=== PATIENT | male | born 1990 | race Caucasian/White ===

== ENCOUNTER → 2016-10-20 | Outpatient (CLI) | payer OTHER ==
[~2016-10-20] MED LIST: ACET-1311 PO; DXY100 PO; METO25TA3 PO; TACR1CAP PO
[2016-10-20 09:33] LABS: BASO % 0.5 %; BASO ABS # 0.04 K/uL (0-0.2); COMPLETE YES; EOS % 3.2 %; HEMATOCRIT 38.6 % (42-52); IG% 0.1 %; LYMPH % 30.8 %; LYMPH ABS # 2.31 K/uL (1.2-3.4); MEAN CELL VOLUME 87.5 fL (80-100); MEAN CORPUSCULAR HEMOGLOBIN 29.3 pg (25-34); MEAN CORPUSCULAR HGB CONC 33.4 g/dl (32-36); MEAN PLATELET VOLUME 11.2 fL (7.4-10.4); MONO % 10.9 %; NEUT % 54.5 %; PLATELET COUNT 248 K/uL (130-400); RED BLOOD COUNT 4.41 M/uL (4.7-6.1)
[2016-10-20 09:52] LABS: BLOOD UREA NITROGEN 25 mg/dl (7-18); BUN/CREATININE RATIO 26.3 (10-20); CALCIUM 9.3 mg/dl (8.5-10.1); CARBON DIOXIDE 27 mmol/L (21-32); CHLORIDE 104 mmol/L (98-107); CREATININE 0.93 mg/dl (0.60-1.40); GLUCOSE 88 mg/dl (70-99); POTASSIUM 4.4 mmol/L (3.5-5.1); SODIUM 139 mmol/L (136-145); URIC ACID 5.8 mg/dl (2.6-7.2)
[2016-10-20 09:53] LABS: PHOSPHORUS 3.7 mg/dl (2.5-4.9)
[2016-10-22 10:30] LABS: FK506 TACROLIMUS HIGHLY SENS 2.1 MCG/L (5-20)
== END | disposition home or self-care (01) ==
LOC: C.LAB1850 07:31
PROVIDERS: ATTEND Specialist
DX: Z94.0 Kidney transplant status (principal)

== ENCOUNTER 2017-04-12 15:32 | Inpatient (IN) | payer OTHER ==
[~2017-04-12] VITALS: Ht 177.8 cm; Wt 67.0 kg
[2017-04-12] MEDS ORDERED: PIPERACILLIN/TAZOBACTAM 4.5 GM/100ML D5W IV STA (16:58)
[2017-04-12] MEDS ORDERED: SODIUM CHLORIDE 0.9% 1000ML 1,000 ML IV STA (16:58)
[2017-04-12] MEDS ORDERED: SODIUM CHLORIDE 0.9% 1000ML 500 ML IV ONE (16:58)
[2017-04-12] MEDS ORDERED: ACETAMINOPHEN 500 MG TAB PO STA (16:58)
[2017-04-12] MEDS ORDERED: METO25TA3 PO (17:12)
[2017-04-12] MEDS ORDERED: ACET-1311 PO (17:12)
[2017-04-12] MEDS ORDERED: TACR1CAP PO (17:12)
[2017-04-12 17:18] LABS: URINE APPEARANCE CLEAR (CLEAR); URINE BILIRUBIN NEG (NEG); URINE COLOR YELLOW; URINE EPITHELIAL CELL AUTO 20-30 /lpf (0-5); URINE NITRITE NEG (NEG); URINE SPECIFIC GRAVITY 1.007 (1.000-1.030); UROBILINOGEN NEG (NEG); ZZUR CULT IF INDIC CLEAN CATCH NO
[2017-04-12 17:21] LABS: MANUAL MICROSCOPIC REQUIRED? NO; REVIEW REQ? NO
[2017-04-12 17:40] LABS: BASO % 0.2 %; BASO ABS # 0.02 K/uL (0-0.2); COMPLETE YES; EOS % 0.2 %; IG% 0.4 %; LYMPH ABS # 1.17 K/uL (1.2-3.4); MEAN CELL VOLUME 84.3 fL (80-100); MEAN CORPUSCULAR HEMOGLOBIN 29.5 pg (25-34); MEAN PLATELET VOLUME 10.2 fL (7.4-10.4); NEUT % 76.2 %; PLATELET COUNT 212 K/uL (130-400); RED BLOOD COUNT 4.51 M/uL (4.7-6.1); WHITE BLOOD COUNT 13.05 K/uL (4.8-10.8)
--- NOTE | 2017-04-12 17:46 | DIAGNOSTIC IMAGING REPORT ---
CHEST ONE VIEW PORTABLE CLINICAL HISTORY: Sepsis fever COMPARISON STUDY: No previous studies for comparison. FINDINGS: The bones soft tissues and hemidiaphragms are normal. The cardiomediastinal silhouette is normal. The lungs are clear. The pulmonary vasculature is normal. IMPRESSION: Negative chest. The above report was generated using voice recognition software. It may contain grammatical, syntax or spelling errors. Electronically signed by: Rancho Fishman M.D. 04/12/2017 5:45 PM Dictated Date/Time: 04/12/2017 5:45 PM
[2017-04-12 17:58] LABS: INR 1.1 (0.9-1.1); PARTIAL THROMBOPLASTIN RATIO 1.3; PROTHROMBIN TIME (PATIENT) 11.4 SECONDS (9.0-12.0)
[2017-04-12 18:02] LABS: BUN/CREATININE RATIO 9.6 (10-20); CALCIUM 9.2 mg/dl (8.5-10.1); CREATININE 0.97 mg/dl (0.60-1.40); POTASSIUM 3.9 mmol/L (3.5-5.1)
[2017-04-12 18:05] LABS: ALB/GLOB RATIO 0.9 (0.9-2)
[2017-04-12 18:51] LABS: LYME DISEASE AB IGG NEG (NEG); LYME DISEASE AB IGM NEG (NEG)
--- NOTE | 2017-04-12 19:58 | History and Physical ---
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 He has no specific symptoms otherwise the point a particular illness. He does have some minimal pelvic tenderness over his transplant in the right renal pelvis. He has some generalized fatigue. Family History Noncontributory Social History Smoking Status: Never Smoker Smokeless Tobacco Use: No Alcohol Use: none Drug Use: none Occupational Status: [employer] student Immunizations History of Influenza Vaccine: Unknown History of Tetanus Vaccine?: Unknown History of Pneumococcal: Unknown History of Hepatitis B Vaccine: Unknown Multi-Drug Resistant Organisms History of MDRO: No Home Medications Scheduled Metoprolol Succ (Toprol Xl) (Toprol-Xl), 12.5 MG PO DAILY Tacrolimus (Prograf), 3 CAP PO BID Miscellaneous Medications Acetaminophen (Tylenol), 325 MG PO Review of Systems The patient denies chest pain, palpitations, shortness of breath, cough, lower extremity swelling, vision change, hearing change, sore throat, chills, sweats, weight change, fatigue, nausea, vomiting, diarrhea or constipation, abdominal pain, blood in urine or stool, dysuria, urinary frequency or urgency, lightheadedness, dizziness, headache, memory loss, rash, abnormal bruising or bleeding, imbalance, focal or generalized weakness, numbness or tingling in arms or legs, back or neck pain, night sweats, or allergy symptoms. The review of systems is otherwise negative other than for that already noted above, and at least 10 systems have been reviewed. Physical Exam Vital Signs Date Time Temp Pulse Resp B/P (MAP) Pulse Ox O2 Delivery O2 Flow Rate FiO2 04/12/17 18:21 37.5 83 17 124/80 96 Room Air 04/12/17 17:39 98 Room Air 04/12/17 17:10 92 04/12/17 17:05 38.0 102 20 149/78 97 Room Air 04/12/17 15:40 37.6 105 22 153/83 97 Room Air The patient is awake, well-developed and adequately nourished, alert and oriented 3, normocephalic and atraumatic, lying in bed and in no acute distress. HEENT--PERRL, EOMI, mucous membranes and oropharynx dry. Neck--supple, no JVD or bruits, thyroid normal, trachea midline, no adenopathy. Heart--normal S1 and S2, no extra beats, no murmurs, rubs or gallops. Lungs--clear bilaterally with good air movement, no respiratory distress, no accessory muscle use. Abdomen--normal bowel sounds and soft, right renal pelvis minimally tender transplant, nondistended, no hernias or masses, no organomegaly. Extremities--no cyanosis, clubbing or edema. There are good distal pulses b/l. Dermatologic--normal skin turgor, normal color, warm and dry, no abnormal lymph nodes, no rash. Neurologic--cranial nerves II through XII grossly intact, motor and sensory examination normal. Rheumatologic--normal range of motion, nontender, muscles and joints. Psychiatric--normal affect. Diagnostics Laboratory Results Results Past 24 Hours Test 04/12/17 17:00 04/12/17 17:20 04/12/17 17:32 04/12/17 19:44 Range/Units Urine Color YELLOW Urine Appearance CLEAR CLEAR Urine pH 8.0 4.5-7.5 Urine Specific [place] 1.007 1.000-1.030 Urine Protein NEG NEG Urine Glucose (UA) NEG NEG Urine Ketones NEG NEG Urine Occult Blood 2+ NEG Urine Nitrite NEG NEG Urine Bilirubin NEG NEG Urine Urobilinogen NEG NEG Urine Leukocyte Esterase LARGE NEG Urine WBC (Auto) 5-10 0-5 /hpf Urine RBC (Auto) 0-4 0-4 /hpf Urine Hyaline Casts (Auto) 0 0-5 /lpf Urine Epithelial Cells (Auto) 20-30 0-5 /lpf Urine Bacteria (Auto) NEG NEG White Blood Count 13.05 4.8-10.8 K/uL Red Blood Count 4.51 4.7-6.1 M/uL Hemoglobin 13.3 14.0-18.0 g/dL Hematocrit 38.0 42-52 % Mean Corpuscular Volume 84.3 80-100 fL Mean Corpuscular Hemoglobin 29.5 25-34 pg Mean Corpuscular Hemoglobin Concent 35.0 32-36 g/dl Platelet Count 212 130-400 K/uL Mean Platelet Volume 10.2 7.4-10.4 fL Neutrophils (%) (Auto) 76.2 % Lymphocytes (%) (Auto) 9.0 % Monocytes (%) (Auto) 14.0 % Eosinophils (%) (Auto) 0.2 % Basophils (%) (Auto) 0.2 % Neutrophils # (Auto) 9.96 1.4-6.5 K/uL Lymphocytes # (Auto) 1.17 1.2-3.4 K/uL Monocytes # (Auto) 1.83 0.11-0.59 K/uL Eosinophils # (Auto) 0.02 0-0.5 K/uL Basophils # (Auto) 0.02 0-0.2 K/uL RDW Standard Deviation 38.8 36.4-46.3 fL RDW Coefficient of Variation 12.8 11.5-14.5 % Immature Granulocyte % (Auto) 0.4 % Immature Granulocyte # (Auto) 0.05 0.00-0.02 K/uL Prothrombin Time 11.4 9.0-12.0 SECONDS Prothromb Time International Ratio 1.1 0.9-1.1 Activated Partial Thromboplast Time 34.8 21.0-31.0 SECONDS Partial Thromboplastin Ratio 1.3 Sodium Level 134 136-145 mmol/L Potassium Level 3.9 3.5-5.1 mmol/L Chloride Level 100 98-107 mmol/L Carbon Dioxide Level 28 21-32 mmol/L Anion Gap 6.0 3-11 mmol/L Blood Urea Nitrogen 9 7-18 mg/dl Creatinine 0.97 0.60-1.40 mg/dl Est Creatinine Clear Calc Drug Dose 118.3 ml/min Estimated GFR () 126.1 Estimated GFR (Non- 108.8 BUN/Creatinine Ratio 9.6 10-20 Random Glucose 108 70-99 mg/dl Calcium Level 9.2 8.5-10.1 mg/dl Total Bilirubin 1.4 0.2-1 mg/dl Aspartate Amino Transf (AST/SGOT) 14 15-37 U/L Alanine Aminotransferase (ALT/SGPT) 18 12-78 U/L Alkaline Phosphatase 73 45-117 U/L Total Protein 7.7 6.4-8.2 gm/dl Albumin 3.7 3.4-5.0 gm/dl Globulin 4.0 2.5-4.0 gm/dl Albumin/Globulin Ratio 0.9 0.9-2 Lyme Disease IgG Antibody NEG NEG Lyme Disease IgM Antibody NEG NEG Bedside Lactic Acid Venous 0.57 0.90-1.70 mmol/L Microbiology Results 04/12/17 Blood Culture, Received Pending 04/12/17 Blood Culture, Received Pending Diagnostic Radiology Patient Name: JAYLON VERA Unit Number: [id number] Dictated: 04/12/171744 Transcribed: 04/12/171744 MS Printed Date/Time: [~ rep prt dt]/[~ rep prt tm] [~ rep ct labl] - [~ rep ct ivnm] [place] [address] Dictated: 04/12/171744 Transcribed: 04/12/171744 MS Printed Date/Time: [~ rep prt dt]/[~ rep prt tm] [~ rep ct labl] - [~ rep ct ivnm] [~ rep ct add3]] CHEST ONE VIEW PORTABLE CLINICAL HISTORY: Sepsis fever COMPARISON STUDY: No previous studies for comparison. FINDINGS: The bones soft tissues and hemidiaphragms are normal. The cardiomediastinal silhouette is normal. The lungs are clear. The pulmonary vasculature is normal. IMPRESSION: Negative chest. The above report was generated using voice recognition software. It may contain grammatical, syntax or spelling errors. Electronically signed by: Rancho Fishman M.D. 04/12/2017 5:45 PM Dictated Date/Time: 04/12/2017 5:45 PM The status of this report is Signed. Draft = Not yet reviewed or approved by Radiologist. Signed = Reviewed and approved by Radiologist. <AttendingPhy></AttendingPhy> <FamilyPhy>No Doctor, Assigned</FamilyPhy> < PrimaryPhy>No Doctor, Assigned</PrimaryPhy> <UnitNumber>[id number]</UnitNumber> <VisitNumber>[id number]</VisitNumber> <PatientName>JAYLON VERA</PatientName> <DateOfBirth>1990</DateOfBirth> <Location>[facility]</Location> <ServiceDate></ServiceDate> <MNE>ESINDI</MNE> <OrderingPhy>Danny Galvin M.D.</ OrderingPhy> <OrderingPhyMNE>f rep ord dr torres</OrderingPhyMNE> <DictatingPhyMNE> f rep dict dr torres</DictatingPhyMNE> <CCListMNE>f rep ct mne</CCListMNE> < AdmittingPhyMNE>f pt admit dr torres</AdmittingPhyMNE> <AttendingPhyMNE>f pt attend dr torres</AttendingPhyMNE> <ConsultingPhyMNE>f pt consult dr torres</ConsultingPhyMNE> <FamilyPhyMNE>f pt fam dr torres</FamilyPhyMNE> <OtherPhyMNE>f pt other dr torres</OtherPhyMNE> < PrimaryPhyMNE>f pt prim care dr torres</PrimaryPhyMNE> <ReferringPhyMNE>f pt referring dr torres</ReferringPhyMNE> Impression Assessment and Plan Febrile illness/generalized achiness/immunocompromised due to medications/ status post renal transplant in right pelvis--emergency department physician has spoken with transplant physician at [place], and their recommendation is for the patient to be observed overnight in the hospital. Order ULTRASOUND of right renal pelvis for transplant function. Regular diet. Order a tacrolimus level. Order CMV level Empiric treatment daptomycin IV and Zosyn IV. Follow urine cultures and blood cultures. Continue current dose of Prograf. Continue metoprolol. Level of Care Med/Surg Advanced Directives Existing Advance Directive: No Existing Living Will: No Existing Power of Cleaning Machine Operator: No Resuscitation Status FULL RESUSCITATION VTE Prophylaxis VTE Risk Assessment Done? Y/N: Yes Risk Level: Low Given or contraindicated: SCD's Social Service Consult None Apply
[2017-04-12 20:09] VITALS: BP 124/80; PULSE 83; TEMP 37.5; O2SAT 100; Ht 177.8 cm; Wt 67.0 kg
--- NOTE | 2017-04-12 20:56 | DIAGNOSTIC IMAGING REPORT ---
RENAL TRANSPLANT W/OW DUPLE CLINICAL HISTORY: renal transplant in right pelvis, immunocompromised, fever TECHNIQUE: Ultrasound COMPARISON STUDY: None FINDINGS: The right cahto kidney measures 10.5 cm. It demonstrates hydronephrosis. The left cahto kidney has been surgically removed. Transplant kidney measures 11.6 cm maximum dimension. There is mild fullness of the renal pelvis although oc hydronephrosis is not seen. This resolved post voiding. Velocity characteristics are unremarkable. Impedance characteristics are unremarkable. IMPRESSION: 1. Surgically absent left kidney. 2.. Negative right kidney demonstrates hydronephrosis with a maximum dimension 10.5 cm. 3. Right renal transplant kidney measures 11.6 cm. It demonstrates mild fullness of the renal collecting system with bladder distention, although this resolves post voiding. 4. Normal renal arterial blood flow characteristics to the transplant kidney. No evidence for a significant stenotic process. The above report was generated using voice recognition software. It may contain grammatical, syntax or spelling errors. Electronically signed by: Rancho Fishman M.D. 04/12/2017 8:55 PM Dictated Date/Time: 04/12/2017 8:51 PM
[2017-04-12 21:06] VITALS: BP 143/82; PULSE 78; TEMP 37.3; O2SAT 100
[2017-04-12] MEDS: TACROLIMUS 1 MG CAP PO SCH (21:34)
--- NOTE | 2017-04-12 21:35 | EMERGENCY ROOM VISIT NOTE ---
History Report prepared by Nohelia: Lian Santos Under the Supervision of: Dr. Danny Galvin M.D. First contact with patient: 16:55 Chief Complaint: FLU LIKE SX Stated Complaint: 102 FEVER,WILKS,CHILLS History of Present Illness The patient is a 26 year old male who presents to the Emergency Room with complaints of an episode of flu like symptoms starting yesterday. The patient states that he received a kidney transplant in 2005. The patient states that yesterday he woke up feeling weak, nauseous, with chills, and a headache. The patient notes he is no longer nauseous. He states that he has been taking Tylenol every 4-6 hours and that has helped with the fever. He states that his temperature was 102 degrees Fahrenheit. He notes that yesterday he felt achy. He states that he feels better than yesterday and notes he has been drinking more fluids. He states that his urine has been clear. He currently rates his pain as a 6/10 in severity. The patient denies infection in his urine ever, any urinary symptoms, cough, congestion, being around someone sick, rashes, and tick bites. Source of History: patient Onset: yesterday Position: other (global) Symptom Intensity: 6/10 Quality: ache Timing: other (episode) Associated Symptoms: + fevers, + chills, + headache, + weakness, No cough, No nausea, No urinary symptoms, No rash Note: The patient denies infection in his urine ever, congestion, being around someone sick, and tick bites. Review of Systems See HPI for pertinent positives & negatives. A total of 10 systems reviewed and were otherwise negative. Past Medical & Surgical Medical Problems: (1) Febrile illness, acute Surgical Problems: (1) Kidney transplant recipient Family History No pertinent family history Social History Smoking Status: Never Smoker Marital Status: in relationship Housing Status: lives with significant other Occupation Status: employed Current/Historical Medications Scheduled Metoprolol Succ (Toprol Xl) (Toprol-Xl), 12.5 MG PO DAILY Tacrolimus (Prograf), 3 CAP PO BID Miscellaneous Medications Acetaminophen (Tylenol), 325 MG PO Allergies Coded Allergies: No Known Allergies (Unverified , 04/12/17) Physical Exam Vital Signs Date Time Temp Pulse Resp B/P (MAP) Pulse Ox O2 Delivery O2 Flow Rate FiO2 04/12/17 18:21 37.5 83 17 124/80 96 Room Air 04/12/17 17:39 98 Room Air 04/12/17 17:10 92 04/12/17 17:05 38.0 102 20 149/78 97 Room Air 04/12/17 15:40 37.6 105 22 153/83 97 Room Air Physical Exam GENERAL: Patient is in no acute distress. HEENT: No acute trauma, normocephalic atraumatic, mucous membranes moist, no nasal congestion, no scleral icterus. NECK: No stridor, no adenopathy, no meningismus, trachea is midline. LUNGS: Clear to auscultation bilaterally, no wheeze, no rhonchi, breath sounds equal. HEART: Without murmurs gallops or rubs, regular rate and rhythm. ABDOMEN: Soft, mildly tender in RLQ over the renal transplant, bowel sounds positive, no hernias, no peritonitis. EXTREMITIES: No cyanosis or edema, full range of motion of all the joints without pain or difficulty, no signs for acute trauma. NEUROLOGIC: Oriented x 3, no acute motor or sensory deficits, no focal weakness. SKIN: No rash, no jaundice, no diaphoresis. Medical Decision & Procedures ER Provider Diagnostic Interpretation: Radiology results as stated below per my review and radiologist interpretation: CHEST ONE VIEW PORTABLE CLINICAL HISTORY: Sepsis fever COMPARISON STUDY: No previous studies for comparison. FINDINGS: The bones soft tissues and hemidiaphragms are normal. The cardiomediastinal silhouette is normal. The lungs are clear. The pulmonary vasculature is normal. IMPRESSION: Negative chest. The above report was generated using voice recognition software. It may contain grammatical, syntax or spelling errors. Electronically signed by: Rancho Fishman M.D. 04/12/2017 5:45 PM Dictated Date/Time: 04/12/2017 5:45 PM Laboratory Results 04/12/17 17:20 Red Blood Count 4.51, Mean Corpuscular Volume 84.3, Mean Corpuscular Hemoglobin 29.5, Mean Corpuscular Hemoglobin Concent 35.0, Mean Platelet Volume 10.2, Neutrophils (%) (Auto) 76.2, Lymphocytes (%) (Auto) 9.0, Monocytes (%) (Auto) 14.0, Eosinophils (%) (Auto) 0.2, Basophils (%) (Auto) 0.2, Neutrophils # (Auto ) 9.96, Lymphocytes # (Auto) 1.17, Monocytes # (Auto) 1.83, Eosinophils # (Auto ) 0.02, Basophils # (Auto) 0.02 04/12/17 17:20 Test 04/12/17 17:00 04/12/17 17:20 04/12/17 17:32 Urine Color YELLOW Urine Appearance CLEAR (CLEAR) Urine pH 8.0 (4.5-7.5) Urine Specific [place] 1.007 (1.000-1.030) Urine Protein NEG (NEG) Urine Glucose (UA) NEG (NEG) Urine Ketones NEG (NEG) Urine Occult Blood 2+ (NEG) Urine Nitrite NEG (NEG) Urine Bilirubin NEG (NEG) Urine Urobilinogen NEG (NEG) Urine Leukocyte Esterase LARGE (NEG) Urine WBC (Auto) 5-10 /hpf (0-5) Urine RBC (Auto) 0-4 /hpf (0-4) Urine Hyaline Casts (Auto) 0 /lpf (0-5) Urine Epithelial Cells (Auto) 20-30 /lpf (0-5) Urine Bacteria (Auto) NEG (NEG) White Blood Count 13.05 K/uL (4.8-10.8) Red Blood Count 4.51 M/uL (4.7-6.1) Hemoglobin 13.3 g/dL (14.0-18.0) Hematocrit 38.0 % (42-52) Mean Corpuscular Volume 84.3 fL (80-100) Mean Corpuscular Hemoglobin 29.5 pg (25-34) Mean Corpuscular Hemoglobin Concent 35.0 g/dl (32-36) Platelet Count 212 K/uL (130-400) Mean Platelet Volume 10.2 fL (7.4-10.4) Neutrophils (%) (Auto) 76.2 % Lymphocytes (%) (Auto) 9.0 % Monocytes (%) (Auto) 14.0 % Eosinophils (%) (Auto) 0.2 % Basophils (%) (Auto) 0.2 % Neutrophils # (Auto) 9.96 K/uL (1.4-6.5) Lymphocytes # (Auto) 1.17 K/uL (1.2-3.4) Monocytes # (Auto) 1.83 K/uL (0.11-0.59) Eosinophils # (Auto) 0.02 K/uL (0-0.5) Basophils # (Auto) 0.02 K/uL (0-0.2) RDW Standard Deviation 38.8 fL (36.4-46.3) RDW Coefficient of Variation 12.8 % (11.5-14.5) Immature Granulocyte % (Auto) 0.4 % Immature Granulocyte # (Auto) 0.05 K/uL (0.00-0.02) Prothrombin Time 11.4 SECONDS (9.0-12.0) Prothromb Time International Ratio 1.1 (0.9-1.1) Activated Partial Thromboplast Time 34.8 SECONDS (21.0-31.0) Partial Thromboplastin Ratio 1.3 Anion Gap 6.0 mmol/L (3-11) Est Creatinine Clear Calc Drug Dose 118.3 ml/min Estimated GFR () 126.1 Estimated GFR (Non- 108.8 BUN/Creatinine Ratio 9.6 (10-20) Calcium Level 9.2 mg/dl (8.5-10.1) Total Bilirubin 1.4 mg/dl (0.2-1) Aspartate Amino Transf (AST/SGOT) 14 U/L (15-37) Alanine Aminotransferase (ALT/SGPT) 18 U/L (12-78) Alkaline Phosphatase 73 U/L (45-117) Total Protein 7.7 gm/dl (6.4-8.2) Albumin 3.7 gm/dl (3.4-5.0) Globulin 4.0 gm/dl (2.5-4.0) Albumin/Globulin Ratio 0.9 (0.9-2) Lyme Disease IgG Antibody NEG (NEG) Lyme Disease IgM Antibody NEG (NEG) Bedside Lactic Acid Venous 0.57 mmol/L (0.90-1.70) Laboratory results reviewed by me. Medications Administered Medications (Trade) Dose Ordered Sig/Obie Route Start Time Stop Time Status Last Admin Dose Admin Sodium Chloride 500 ml @ 999 mls/hr Q31M ONCE IV 04/12/17 16:58 04/12/17 17:28 DC 04/12/17 16:58 999 MLS/HR Piperacillin Sod/ Tazobactam Sod (Zosyn Iv) 4.5 gm ONE STAT IV 04/12/17 16:58 04/12/17 17:06 DC 04/12/17 16:58 4.5 GM Acetaminophen (Tylenol Tab) 1,000 mg NOW STAT PO 04/12/17 16:58 04/12/17 17:06 DC 04/12/17 16:58 1,000 MG Sodium Chloride 1,000 ml @ 200 mls/hr Q5H STAT IV 04/12/17 16:58 04/12/17 21:25 DC 04/12/17 16:58 200 MLS/HR ED Course 1656: The patient was evaluated in room C7. A complete history and physical exam was performed. 1657: Ordered NSS 1000 ml @ 200 mls/hr IV, Tylenol Tab 1000 mg PO, Zosyn Iv 4.5 gm IV, NSS 500 ml @ 999 mls/hr IV. 183: I discussed the case with the pediatric transplant specialist. They state that they believe we have done everything that needs done and want to talk to the patient to come up with a plan. 1855: I discussed the case with the renal fellow for the adult population. He states he is going to talk it over with his attending and call back. 1905: The renal transplant specialist states that the patient should be admitted for observation till all his cultures come back negative. 1911: I reevaluated the patient and he states he is fine with staying. 1914: Discussed the patient's case with Dr. Martin. The patient will be evaluated for further management. Medical Decision Differential diagnoses include bacteremia, sepsis, immunocompromise, renal failure, rejection, dehydration, electrolyte imbalance, pneumonia, viral illness. There is a mild leukocytosis, this could be consistent with infection. No concerning anemia. No significant electrolyte abnormality, kidney failure or hepatitis. Lactic acid level is normal making severe sepsis less likely. There is no coagulopathy. Chest film does not show pneumonia or mediastinal widening. On exam, there was no rash. Urinalysis is suggestive of a possible infection, urine culture and blood cultures are pending. Lyme disease testing was negative. The patient received IV saline, oral Tylenol, IV Zosyn. He seems improved, he is resting comfortably. I discussed his case with the renal transplant service in [place]. They suggested a hospital stay for IV antibiotics. There was concern because of his immunocompromise. I spoke to the patient and case management. The on-call hospitalist was consulted. Consults Time Called: 1816 Consulting Physician: pediatric transplant specialist in [place] Returned Call: [phone] I discussed the case with the pediatric transplant specialist. They state that they believe we have done everything that needs done and want to talk to the patient to come up with a plan. Additional Consults: Time Called: 1846 Consulted Physician: renal fellow for the adult population in [place] Returned Call: [phone] Additional Comments: I discussed the case with the renal fellow for the adult population. He states he is going to talk it over with his attending and call back. The renal transplant specialist states that the patient should be admitted for observation till all his cultures come back negative Time Called: 1911 Consulted Physician: Dr. Martin Returned Call: [phone] Additional Comments: Discussed the patient's case with Dr. Martin. The patient will be evaluated for further management. Impression Primary Impression: UTI (urinary tract infection) Additional Impressions: Immunocompromised Fever Scribe Attestation The scribe's documentation has been prepared under my direction and personally reviewed by me in its entirety. I confirm that the note above accurately reflects all work, treatment, procedures, and medical decision making performed by me. Departure Information Dispostion Being Evaluated By Hospitalist Referrals No Doctor, Assigned (PCP) Patient Instructions My [facility] Problem Qualifiers
[2017-04-12 21:40] VITALS: TEMP 36.9
[2017-04-12] MEDS: ACETAMINOPHEN 325 MG TAB PO PRN (21:53)
[2017-04-12] MEDS: PIPERACILL/TAZOBAC IV 3.375 GM in DEXTROSE 5% 100ML 100 ML IV SCH (21:54)
[2017-04-12] MEDS: DAPTOmycin IV 425 MG in SODIUM CHLORIDE 0.9% 50ML 50 ML IV SCH (22:11)
[2017-04-12] MEDS ORDERED: PIPERACILL/TAZOBAC CONSULT ACTIVE PRN (23:00)
[2017-04-12] MEDS: ZOLPIDEM TARTRATE 5 MG TAB PO PRN (23:51)
[2017-04-13] VITALS (8 sets, daily range): BP systolic 118–122; BP diastolic 70–81; PULSE 60–88; TEMP 36.8–38.1; O2SAT 99–100
[2017-04-13] MEDS: PIPERACILL/TAZOBAC IV 3.375 GM in DEXTROSE 5% 100ML 100 ML IV SCH ×3 (06:13→21:53)
[2017-04-13] MEDS: ACETAMINOPHEN 325 MG TAB PO PRN ×3 (07:11→21:52)
[2017-04-13] MEDS ORDERED: METOPROLOL SUCC 25MG EXT REL TAB PO SCH (08:00)
[2017-04-13] MEDS: TACROLIMUS 1 MG CAP PO SCH (08:03)
[2017-04-13 08:54] LABS: BASO % 0.3 %; BASO ABS # 0.03 K/uL (0-0.2); EOS % 0.2 %; HEMATOCRIT 36.2 % (42-52); IG% 0.2 %; LYMPH % 9.4 %; LYMPH ABS # 1.04 K/uL (1.2-3.4); MEAN CELL VOLUME 84.8 fL (80-100); MEAN CORPUSCULAR HEMOGLOBIN 29.5 pg (25-34); MEAN PLATELET VOLUME 9.8 fL (7.4-10.4); NEUT % 73.9 %; PLATELET COUNT 190 K/uL (130-400); RED BLOOD COUNT 4.27 M/uL (4.7-6.1); WHITE BLOOD COUNT 11.04 K/uL (4.8-10.8)
[2017-04-13 08:56] LABS: COMPLETE YES; MEAN CORPUSCULAR HGB CONC 34.8 g/dl (32-36)
[2017-04-13 09:10] LABS: BUN/CREATININE RATIO 10.6 (10-20); CALCIUM 9.2 mg/dl (8.5-10.1); CREATININE 1.1 mg/dl (0.60-1.40); POTASSIUM 3.7 mmol/L (3.5-5.1)
--- NOTE | 2017-04-13 11:34 | Nephrology Consultation ---
Nephrology Consultation Date & Providers Date of Consultation: Apr 13, 2017. Primary Care Provider: No Doctor, Assigned Referring Provider: Reason for Consultation Kidney transplant History of Present Illness Mr. Wu is a 26 year old white male who is seen at the request of Dr. Martin for evaluation of his transplanted kidney. 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 Mr. Wu provided most of his medical history. 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 As an he required several Urologic procedures including a left nephrectomy. At 17 years of age he progressed to ESRD and received a 3 antigen matched DDRT at [facility]. His baseline creatinine stabilized at 0.8 - 1.0 and he has maintained regular follow up at [facility] Department of Kidney Transplantation (Dr. Vonda Dasilva). His maintenance immunosuppressive regimen has been Tacrolimus 1 mg three tablets each morning. Over the last 2 days Mr. Wu has had a fever and weakness. Last night his temperature was 104 degrees. He developed mild dysuria. He presented to the ED yesterday evening for evaluation. Blood cultures were drawn and patient has been started on empiric broad spectrum antibiotics. Past Medical/Surgical History Medical: # donor kidney transplant [facility] 2005. 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 Vonda Dasilva # Sensorineural deafness L ear Surgical: # donor kidney transplant 2005 [facility] Allergies Coded Allergies: No Known Allergies (Unverified , 04/12/17) Inpatient Medications Current Inpatient Medications Medications (Trade) Dose Ordered Sig/Obie Route Start Time Stop Time Status Last Admin Dose Admin Acetaminophen (Tylenol Tab) 650 mg Q4H PRN PO 04/12/17 19:45 05/12/17 19:44 04/13/17 07:11 650 MG Zolpidem Tartrate (Ambien Tab) 5 mg HSZ PRN PO 04/12/17 19:45 05/12/17 19:44 04/12/17 23:51 5 MG Metoprolol Succinate (Toprol Xl Tab) 12.5 mg DAILY PO 04/13/17 08:00 05/13/17 08:59 04/13/17 08:03 12.5 MG Daptomycin 425 mg/ Sodium Chloride 58.5 ml @ 100 mls/hr DAILY@2200 IV 04/12/17 22:00 04/14/17 21:59 04/12/17 22:11 100 MLS/HR Piperacillin Sod/ Tazobactam Sod 3.375 gm/Dextrose 115 ml @ 28.75 mls/ hr Q8 IV 04/12/17 22:00 04/14/17 21:59 04/13/17 06:13 28.75 MLS/HR Piperacillin Sod/ Tazobactam Sod (Consult) 1 ea UD PRN N/A 04/12/17 23:00 05/12/17 22:59 Tacrolimus (Prograf Cap) 3 mg QAM PO 04/14/17 08:00 05/14/17 07:59 Family History No pertinent family history Negative for CKD / ESRD Social History Smoking Status: Never Smoker Smokeless Tobacco Use: No Alcohol Use: none Drug Use: none Marital Status: in relationship Occupation: employed Single. 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 Denies tobacco or alcohol Review of Systems Constitutional: No fever Respiratory: No cough Cardiovascular: No chest pain Abdomen: No pain, No nausea, No vomiting Genitourinary - Male: No hematuria A complete review of systems was performed. Pertinent positives are noted above. All other systems are negative. Physical Exam Date Time Temp Pulse Resp B/P (MAP) Pulse Ox O2 Delivery O2 Flow Rate FiO2 04/13/17 08:41 36.8 04/13/17 07:20 38.1 88 20 121/76 (91) 99 Room Air 04/13/17 05:00 36.8 04/13/17 02:28 36.8 60 16 118/70 (86) 99 Room Air 04/13/17 00:00 100 Room Air 04/12/17 21:40 36.9 04/12/17 21:06 37.3 78 19 143/82 (102) 100 Room Air 04/12/17 20:09 37.5 83 17 124/80 100 Room Air 04/12/17 20:09 66 18 129/75 99 04/12/17 18:21 37.5 83 17 124/80 96 Room Air 04/12/17 17:39 98 Room Air 04/12/17 17:10 92 04/12/17 17:05 38.0 102 20 149/78 97 Room Air 04/12/17 15:40 37.6 105 22 153/83 97 Room Air General Appearance: no apparent distress Head: normocephalic, atraumatic Eyes: PERRL, EOMI Neck: no adenopathy Respiratory/Chest: lungs clear, no respiratory distress Cardiovascular: regular rate, rhythm Abdomen/GI: normal bowel sounds, non tender, soft, + pertinent finding (RLQ transplant allograft is nontender. No bruit appreciated) Back: no CVA tenderness Extremities/Musculoskelatal: no calf tenderness, no pedal edema Neurologic/Psych: alert, oriented x 3 Skin: warm/dry Laboratory Results Last 24 Hours Test 04/12/17 17:00 04/12/17 17:20 04/12/17 17:32 04/13/17 08:40 Urine Color YELLOW Urine Appearance CLEAR Urine pH 8.0 Urine Specific [place] 1.007 Urine Protein NEG Urine Glucose (UA) NEG Urine Ketones NEG Urine Occult Blood 2+ Urine Nitrite NEG Urine Bilirubin NEG Urine Urobilinogen NEG Urine Leukocyte Esterase LARGE Urine WBC (Auto) 5-10 /hpf Urine RBC (Auto) 0-4 /hpf Urine Hyaline Casts (Auto) 0 /lpf Urine Epithelial Cells (Auto) 20-30 /lpf Urine Bacteria (Auto) NEG White Blood Count 13.05 K/uL 11.04 K/uL Red Blood Count 4.51 M/uL 4.27 M/uL Hemoglobin 13.3 g/dL 12.6 g/dL Hematocrit 38.0 % 36.2 % Mean Corpuscular Volume 84.3 fL 84.8 fL Mean Corpuscular Hemoglobin 29.5 pg 29.5 pg Mean Corpuscular Hemoglobin Concent 35.0 g/dl 34.8 g/dl Platelet Count 212 K/uL 190 K/uL Mean Platelet Volume 10.2 fL 9.8 fL Neutrophils (%) (Auto) 76.2 % 73.9 % Lymphocytes (%) (Auto) 9.0 % 9.4 % Monocytes (%) (Auto) 14.0 % 16.0 % Eosinophils (%) (Auto) 0.2 % 0.2 % Basophils (%) (Auto) 0.2 % 0.3 % Neutrophils # (Auto) 9.96 K/uL 8.16 K/uL Lymphocytes # (Auto) 1.17 K/uL 1.04 K/uL Monocytes # (Auto) 1.83 K/uL 1.77 K/uL Eosinophils # (Auto) 0.02 K/uL 0.02 K/uL Basophils # (Auto) 0.02 K/uL 0.03 K/uL RDW Standard Deviation 38.8 fL 39.1 fL RDW Coefficient of Variation 12.8 % 12.8 % Immature Granulocyte % (Auto) 0.4 % 0.2 % Immature Granulocyte # (Auto) 0.05 K/uL 0.02 K/uL Prothrombin Time 11.4 SECONDS Prothromb Time International Ratio 1.1 Activated Partial Thromboplast Time 34.8 SECONDS Partial Thromboplastin Ratio 1.3 Sodium Level 134 mmol/L 134 mmol/L Potassium Level 3.9 mmol/L 3.7 mmol/L Chloride Level 100 mmol/L 102 mmol/L Carbon Dioxide Level 28 mmol/L 25 mmol/L Anion Gap 6.0 mmol/L 7.0 mmol/L Blood Urea Nitrogen 9 mg/dl 12 mg/dl Creatinine 0.97 mg/dl 1.10 mg/dl Est Creatinine Clear Calc Drug Dose 118.3 ml/min 104.3 ml/min Estimated GFR () 126.1 108.3 Estimated GFR (Non- 108.8 93.5 BUN/Creatinine Ratio 9.6 10.6 Random Glucose 108 mg/dl 140 mg/dl Calcium Level 9.2 mg/dl 9.2 mg/dl Total Bilirubin 1.4 mg/dl Aspartate Amino Transf (AST/SGOT) 14 U/L Alanine Aminotransferase (ALT/SGPT) 18 U/L Alkaline Phosphatase 73 U/L Total Protein 7.7 gm/dl Albumin 3.7 gm/dl Globulin 4.0 gm/dl Albumin/Globulin Ratio 0.9 Lyme Disease IgG Antibody NEG Lyme Disease IgM Antibody NEG Bedside Lactic Acid Venous 0.57 mmol/L Impression (1) Fever (2) Immunocompromised (3) Kidney transplant recipient Recommendations KIDNEY TRANSPLANT: -- Volume status, electrolyte balance and kidney function remain stable at this time -- Continue Tacrolimus at current dose. Await blood level -- Monitor serial PRP -- US report reviewed this am: Transplant doppler revealed patent artery and vein. [place] L kidney has been removed. [place] R kidney and transplant allograft both show hydronephrosis. Post void imaging shows hydronephrosis resolves in the allograft. [place] R kidney was not studied post void. -- Will order post void images of R [place] kidney -- Will order last two office visit notes from [facility] Department of Kidney Transplantation for review ID: -- Blood cultures ordered in ED. Results are currently pending -- Will order urine culture -- Continue empiric Zosyn and Daptomycin -- If patient fails to defervesce consider consultation w/ ID
--- NOTE | 2017-04-13 15:04 | DIAGNOSTIC IMAGING REPORT ---
EXAMINATION: RENAL ULTRASOUND CLINICAL HISTORY: Hydronephrosis COMPARISON STUDY: 04/12/2017 FINDINGS: The right kidney measures the right kidney measures 9.2 cm. There is moderate right-sided hydronephrosis. The proximal ureter measures 15 mm. Hydronephrosis is only minimally diminished on post void films.. The left kidney is surgically absent. There is increased right renal cortical echogenicity. There are no renal masses. There is irregular bladder wall thickening. The prevoid bladder volume was 330 cc. The post void bladder volume was 180 cc. The right renal transplant kidney was not imaged. IMPRESSION : 1. Increased right renal cortical echogenicity consistent with medical renal disease 2. Moderate right-sided hydronephrosis with minimal improvement following voiding 3. Post void bladder volume of 180 cc 4. Surgically absent left kidney 5. Bladder wall thickening Electronically signed by: Ruddy Hickman M.D. 04/13/2017 3:03 PM Dictated Date/Time: 04/13/2017 3:00 PM
--- NOTE | 2017-04-13 17:02 | Hospitalist Progress Note ---
Hospitalist Progress Note Date of Service Apr 13, 2017. (Tammy Wade ., TERESAC) Subjective Pt evaluation today including: conversation w/ patient, physical exam, chart review, lab review, review of inpatient medication list Pain: None PO Intake: Tolerating PO diet, decreased appetite Voiding: no voiding problems Patient reports feeling better. He still complains of weakness and fatigue. He did feel feverish with chills earlier this morning and was found to have a fever of 38.1. This is now resolved. He states that he is eating although his appetite is decreased. He does have some mild nausea but does not think he needs to throw up. He has not had a bowel movement in a few days and would like to take something. He uses Colace or Miralax at home. He states that his dysuria has resolved. The patient denies sweats, chest pain, palpitations, claudication, cough, wheezing, shortness of breath, vomiting, abdominal pain, dysuria, hematuria, urinary retention, paralysis, weakness, numbness and tingling. Additional Comments: See HPI for pertinent positives and negatives. All other systems reviewed and negative. (Tammy Wade ., PA-C) Objective Vital Signs Date Time Temp Pulse Resp B/P (MAP) Pulse Ox O2 Delivery O2 Flow Rate FiO2 04/13/17 16:11 37.2 75 16 122/81 (95) 99 Room Air 04/13/17 08:41 36.8 04/13/17 07:20 38.1 88 20 121/76 (91) 99 Room Air 04/13/17 05:00 36.8 04/13/17 02:28 36.8 60 16 118/70 (86) 99 Room Air 04/13/17 00:00 100 Room Air 04/12/17 21:40 36.9 04/12/17 21:06 37.3 78 19 143/82 (102) 100 Room Air 04/12/17 20:09 37.5 83 17 124/80 100 Room Air 04/12/17 20:09 66 18 129/75 99 04/12/17 18:21 37.5 83 17 124/80 96 Room Air 04/12/17 17:39 98 Room Air 04/12/17 17:10 92 04/12/17 17:05 38.0 102 20 149/78 97 Room Air (Tammy Wade ., PA-C) Physical Exam Notes: General appearance: +Fatigued. Well-developed, well-nourished, no apparent distress Head: Normocephalic, atraumatic Eyes: Normal inspection, PERRL, EOMI ENT: Normal ENT inspection, hearing grossly normal, pharynx normal Neck: Supple, no JVD, trachea midline Respiratory/Chest: Lungs clear to auscultation, normal breath sounds, no respiratory distress Cardiovascular: Regular rate & rhythm, no gallop, no murmur Abdomen/GI: Normal bowel sounds, non-tender, soft Extremities/Musculoskeletal: Normal inspection, no calf tenderness, no pedal edema Neurological/Psych: Alert, normal mood/affect, oriented x 3 Skin: Normal color, warm/dry, no rash (Tammy Wade, PA-C) Laboratory Results Last 24 Hours Test 04/12/17 17:00 04/12/17 17:20 04/12/17 17:32 04/13/17 08:40 Urine Color YELLOW Urine Appearance CLEAR Urine pH 8.0 Urine Specific [place] 1.007 Urine Protein NEG Urine Glucose (UA) NEG Urine Ketones NEG Urine Occult Blood 2+ Urine Nitrite NEG Urine Bilirubin NEG Urine Urobilinogen NEG Urine Leukocyte Esterase LARGE Urine WBC (Auto) 5-10 /hpf Urine RBC (Auto) 0-4 /hpf Urine Hyaline Casts (Auto) 0 /lpf Urine Epithelial Cells (Auto) 20-30 /lpf Urine Bacteria (Auto) NEG White Blood Count 13.05 K/uL 11.04 K/uL Red Blood Count 4.51 M/uL 4.27 M/uL Hemoglobin 13.3 g/dL 12.6 g/dL Hematocrit 38.0 % 36.2 % Mean Corpuscular Volume 84.3 fL 84.8 fL Mean Corpuscular Hemoglobin 29.5 pg 29.5 pg Mean Corpuscular Hemoglobin Concent 35.0 g/dl 34.8 g/dl Platelet Count 212 K/uL 190 K/uL Mean Platelet Volume 10.2 fL 9.8 fL Neutrophils (%) (Auto) 76.2 % 73.9 % Lymphocytes (%) (Auto) 9.0 % 9.4 % Monocytes (%) (Auto) 14.0 % 16.0 % Eosinophils (%) (Auto) 0.2 % 0.2 % Basophils (%) (Auto) 0.2 % 0.3 % Neutrophils # (Auto) 9.96 K/uL 8.16 K/uL Lymphocytes # (Auto) 1.17 K/uL 1.04 K/uL Monocytes # (Auto) 1.83 K/uL 1.77 K/uL Eosinophils # (Auto) 0.02 K/uL 0.02 K/uL Basophils # (Auto) 0.02 K/uL 0.03 K/uL RDW Standard Deviation 38.8 fL 39.1 fL RDW Coefficient of Variation 12.8 % 12.8 % Immature Granulocyte % (Auto) 0.4 % 0.2 % Immature Granulocyte # (Auto) 0.05 K/uL 0.02 K/uL Prothrombin Time 11.4 SECONDS Prothromb Time International Ratio 1.1 Activated Partial Thromboplast Time 34.8 SECONDS Partial Thromboplastin Ratio 1.3 Sodium Level 134 mmol/L 134 mmol/L Potassium Level 3.9 mmol/L 3.7 mmol/L Chloride Level 100 mmol/L 102 mmol/L Carbon Dioxide Level 28 mmol/L 25 mmol/L Anion Gap 6.0 mmol/L 7.0 mmol/L Blood Urea Nitrogen 9 mg/dl 12 mg/dl Creatinine 0.97 mg/dl 1.10 mg/dl Est Creatinine Clear Calc Drug Dose 118.3 ml/min 104.3 ml/min Estimated GFR () 126.1 108.3 Estimated GFR (Non- 108.8 93.5 BUN/Creatinine Ratio 9.6 10.6 Random Glucose 108 mg/dl 140 mg/dl Calcium Level 9.2 mg/dl 9.2 mg/dl Total Bilirubin 1.4 mg/dl Aspartate Amino Transf (AST/SGOT) 14 U/L Alanine Aminotransferase (ALT/SGPT) 18 U/L Alkaline Phosphatase 73 U/L Total Protein 7.7 gm/dl Albumin 3.7 gm/dl Globulin 4.0 gm/dl Albumin/Globulin Ratio 0.9 Lyme Disease IgG Antibody NEG Lyme Disease IgM Antibody NEG Bedside Lactic Acid Venous 0.57 mmol/L (Tammy Wade, HUSAM) Diagnostic Results Reviewed the following studies and agree with interpretation as follows: Patient Name: JAYLON VERA Unit Number: [id number] Dictated: 04/12/172050 Transcribed: 04/12/172050 MS Printed Date/Time: [~ rep prt dt]/[~ rep prt tm] [~ rep ct labl] - [~ rep ct ivnm] [facility] [place] [address] Dictated: 04/12/172050 Transcribed: 04/12/172050 MS Printed Date/Time: [~ rep prt dt]/[~ rep prt tm] [~ rep ct labl] - [~ rep ct ivnm] Patient: JAYLON VERA Address1: [address] [facility] Rec: [id number] Address2: Acct ID: [id number] [facility] Zip: [place] [address] Date: 1990 Sex: M Room/Bed: W51 Ref Phy: No Doctor, Assigned SC: 4W Att Phy: Logan Martin M.D. Report #: [id number] [place] Phy: No Doctor, Assigned Test: RENTRANS Admit Phy: Logan Martin M.D. Hob Machine Operator: AZIZA Interpreting Phy: Rancho Fishman M.D. Diagnosis: FEBRILE ILLNESS ACUTE, KIDNEY TRANSPLANT RECIPIENT Ordering Phy: Logan Martin M.D. Service Date: 04/12/17 Admit Date: 04/12/1709/10/17 MNE: [id number] CONF: DICTATED BY: Rancho Fishman M.D.]] CC: No Doctor, Assigned Logan Martin M.D. Endcc: [~ rep ct add3]] RENAL TRANSPLANT W/OW DUPLE CLINICAL HISTORY: renal transplant in right pelvis, immunocompromised, fever TECHNIQUE: Ultrasound COMPARISON STUDY: None FINDINGS: The right [place] kidney measures 10.5 cm. It demonstrates hydronephrosis. The left [place] kidney has been surgically removed. Transplant kidney measures 11.6 cm maximum dimension. There is mild fullness of the renal pelvis although oc hydronephrosis is not seen. This resolved post voiding. Velocity characteristics are unremarkable. Impedance characteristics are unremarkable. IMPRESSION: 1. Surgically absent left kidney. 2.. Negative right kidney demonstrates hydronephrosis with a maximum dimension 10.5 cm. 3. Right renal transplant kidney measures 11.6 cm. It demonstrates mild fullness of the renal collecting system with bladder distention, although this resolves post voiding. 4. Normal renal arterial blood flow characteristics to the transplant kidney. No evidence for a significant stenotic process. The above report was generated using voice recognition software. It may contain grammatical, syntax or spelling errors. Electronically signed by: Rancho Fishman M.D. 04/12/2017 8:55 PM Dictated Date/Time: 04/12/2017 8:51 PM The status of this report is Signed. Draft = Not yet reviewed or approved by Radiologist. Signed = Reviewed and approved by Radiologist. <AttendingPhy>Logan Martin M.D.</AttendingPhy> <FamilyPhy>No Doctor, Assigned</FamilyPhy> <PrimaryPhy>No Doctor, Assigned</PrimaryPhy> <UnitNumber> [id number]</UnitNumber> <VisitNumber>[id number]</VisitNumber> <PatientName> JODYJAYLON</PatientName> <DateOfBirth>1990</DateOfBirth> <Location> C.MS4W</Location> <ServiceDate>04/12/17</ServiceDate> <MNE>ESINDI</MNE> < OrderingPhy>Logan Martin M.D.</OrderingPhy> <OrderingPhyMNE>f rep ord dr torres</OrderingPhyMNE> <DictatingPhyMNE>f rep dict dr torres</DictatingPhyMNE> < CCListMNE>f rep ct mne</CCListMNE> <AdmittingPhyMNE>f pt admit dr torres</ AdmittingPhyMNE> <AttendingPhyMNE>f pt attend dr torres</AttendingPhyMNE> <ConsultingPhyMNE>f pt consult dr torres</ConsultingPhyMNE> <FamilyPhyMNE>f pt fam dr torres</FamilyPhyMNE> <OtherPhyMNE>f pt other dr torres</OtherPhyMNE> < PrimaryPhyMNE>f pt prim care dr torres</PrimaryPhyMNE> <ReferringPhyMNE>f pt referring dr torres</ReferringPhyMNE> Patient Name: JODYJAYLON Unit Number: [id number] Dictated: 04/13/17 1500 Transcribed: 04/13/17 1500 ARG Printed Date/Time: [~ rep prt dt]/[~ rep prt tm] [~ rep ct labl] - [~ rep ct ivnm] [facility] [place] [address] Dictated: 04/13/17 1500 Transcribed: 04/13/17 1500 ARG Printed Date/Time: [~ rep prt dt]/[~ rep prt tm] [~ rep ct labl] - [~ rep ct ivnm] Patient: JAYLON VERA Address1: [address] [facility] Rec: [id number] Address2: Acct ID: [id number] [facility] Zip: [place] [address] Date: 1990 Sex: M Room/Bed: W455-1 Ref Phy: No Doctor, Assigned SC: MICHELLE Att Phy: Logan Martin M.D. Report #: [id number] [place] Phy: No Doctor, Assigned Test: VARSHA Admit Phy: Logan Martin M.D. Hob Machine Operator: KERMIT Interpreting Phy: Ruddy Hickman M.D. Diagnosis: FEBRILE ILLNESS ACUTE, KIDNEY TRANSPLANT RECIPIENT Ordering Phy: Martinez Dias M.D. Service Date: 04/13/17 Admit Date: 04/12/1709/10/17 MNE: [id number] CONF: DICTATED BY: Ruddy Hickman M.D.]] CC: Martinez Dias M.D. No Doctor, Assigned Logan Martin M.D. Endcc: [~ rep ct add3]] EXAMINATION: RENAL ULTRASOUND CLINICAL HISTORY: Hydronephrosis COMPARISON STUDY: 04/12/2017 FINDINGS: The right kidney measures the right kidney measures 9.2 cm. There is moderate right-sided hydronephrosis. The proximal ureter measures 15 mm. Hydronephrosis is only minimally diminished on post void films.. The left kidney is surgically absent. There is increased right renal cortical echogenicity. There are no renal masses. There is irregular bladder wall thickening. The prevoid bladder volume was 330 cc. The post void bladder volume was 180 cc. The right renal transplant kidney was not imaged. IMPRESSION : 1. Increased right renal cortical echogenicity consistent with medical renal disease 2. Moderate right-sided hydronephrosis with minimal improvement following voiding 3. Post void bladder volume of 180 cc 4. Surgically absent left kidney 5. Bladder wall thickening Electronically signed by: Ruddy Hickman M.D. 04/13/2017 3:03 PM Dictated Date/Time: 04/13/2017 3:00 PM The status of this report is Signed. Draft = Not yet reviewed or approved by Radiologist. Signed = Reviewed and approved by Radiologist. <AttendingPhy>Logan Martin M.D.</AttendingPhy> <FamilyPhy>No Doctor, Assigned</FamilyPhy> <PrimaryPhy>No Doctor, Assigned</PrimaryPhy> <UnitNumber> [id number]</UnitNumber> <VisitNumber>[id number]</VisitNumber> <PatientName> JAYLON VERA</PatientName> <DateOfBirth>1990</DateOfBirth> <Location> CAveMS4W</Location> <ServiceDate>04/12/17</ServiceDate> <MNE>ESINDI</MNE> < OrderingPhy>Martinez Dias M.D.</OrderingPhy> <OrderingPhyMNE>f rep ord dr torres</OrderingPhyMNE> <DictatingPhyMNE>f rep dict dr torres</DictatingPhyMNE> < CCListMNE>f rep ct brian</CCListMNE> <AdmittingPhyMNE>f pt admit dr torres</ AdmittingPhyMNE> <AttendingPhyMNE>f pt attend dr torres</AttendingPhyMNE> <ConsultingPhyMNE>f pt consult dr torres</ConsultingPhyMNE> <FamilyPhyMNE>f pt fam dr torres</FamilyPhyMNE> <OtherPhyMNE>f pt other dr torres</OtherPhyMNE> < PrimaryPhyMNE>f pt prim care dr torres</PrimaryPhyMNE> <ReferringPhyMNE>f pt referring dr torres</ReferringPhyMNE> (Tammy Wade ., PA-C) Assessment and Plan 26 y/o male with a history of congenital urinary obstruction and ESRD s/p left nephrectomy and right renal transplant who presents to the ED with fevers, generalized aches, weakness and fatigue. Pt arrived tachycardic, febrile, and with leukocytosis. Sepsis of unknown etiology in the setting of immunocompromise, s/p renal transplant--improving -Admit to med/surg -Ultrasound right transplant kidney shows mild fullness of renal collecting system w/bladder distention that resolves post voiding. Normal renal arterial blood flow characteristics to the transplant kidney. No evidence for a significant stenotic process. -Nephrology consulted, appreciate recs: urine culture pending. Will order post void images of R [place] kidney. Continue IV antibiotics. -Renal ultrasound of [place] kidney shows moderate right-sided hydronephrosis with minimal improvement following voiding -Urine and blood cultures pending -Tacrolimus level pending -Lyme negative. CMV pending -Continue Zosyn and daptomycin IV -Infectious disease consulted, appreciate recs -Continue tacrolimus 3 mg PO qam -Continue home Toprol 12.5 mg PO qd (Tammy Wade ., TERESAC) Reviewed: Pt Seen/Exam by Me (Brielle Georges MD) History Physician Clay Caster Supervision Note: I interviewed and examined the patient. Discussed with CODY Wade and agree with findings and plan as documented in the note. Any exceptions or clarifications are listed here: Feeling much better. No further fevers since this AM. Still some joint aches but no sore throat, no cough, no sinus pressure, no mucus drainage from nose, no abd pain, no diarrhea, no further dysuria. Vitals reviewed NAD, AAOx3 RRR no mgr CTAB no wcr Abd +BS, soft, NT ND, incisional scar RLQ well healed Ext no edema or calf tenderness Skin no rashes 26 yo male with h/o renal transplant on Prograf, with fever, sepsis, unknown source but could be urinary given abnormal UA and bladder thickening on US. -continue Zosyn and Vanco, appreciate ID recommendations to follow -Ur cx collected after abx given so not sure if will be reliable, may end up just treating empirically for UTI--> will d/w ID -f/u tacrolimus level when available -appreciate Nephro recommendations Documented By: Brielle Georges (Brielle Georges MD)
[2017-04-13] MEDS ORDERED: POLYETHYLENE (MIRALAX) 17 GM PACK PO ONE (17:15)
[2017-04-13] MEDS: DAPTOmycin IV 425 MG in SODIUM CHLORIDE 0.9% 50ML 50 ML IV SCH (21:52)
[2017-04-13] MEDS: ZOLPIDEM TARTRATE 5 MG TAB PO PRN (21:52)
[2017-04-14 00:14] VITALS: BP 105/64; PULSE 52; TEMP 36.9; O2SAT 98
[2017-04-14] MEDS: PIPERACILL/TAZOBAC IV 3.375 GM in DEXTROSE 5% 100ML 100 ML IV SCH ×3 (05:29→21:46)
[2017-04-14 05:46] LABS: BASO % 0.3 %; BASO ABS # 0.03 K/uL (0-0.2); COMPLETE YES; EOS % 2.1 %; HEMATOCRIT 37.8 % (42-52); IG% 0.2 %; LYMPH % 16.6 %; LYMPH ABS # 1.51 K/uL (1.2-3.4); MEAN CELL VOLUME 85.9 fL (80-100); MEAN CORPUSCULAR HEMOGLOBIN 29.8 pg (25-34); MEAN CORPUSCULAR HGB CONC 34.7 g/dl (32-36); MEAN PLATELET VOLUME 10.3 fL (7.4-10.4); NEUT % 60.8 %; PLATELET COUNT 216 K/uL (130-400); WHITE BLOOD COUNT 9.11 K/uL (4.8-10.8)
[2017-04-14 06:31] LABS: BUN/CREATININE RATIO 14.3 (10-20); CALCIUM 9.2 mg/dl (8.5-10.1); CREATININE 1.1 mg/dl (0.60-1.40); POTASSIUM 4.9 mmol/L (3.5-5.1)
[2017-04-14 08:08] VITALS: BP 130/77; PULSE 53; TEMP 36.6; O2SAT 99
[2017-04-14] MEDS: TACROLIMUS 1 MG CAP PO SCH (08:23)
[2017-04-14] MEDS: POLYETHYLENE (MIRALAX) 17 GM PACK PO SCH (08:59)
--- NOTE | 2017-04-14 10:24 | Medical Consult ---
Consultation Date of Consultation: Apr 14, 2017. Attending Physician: Logan Martin M.D. Reason for Consultation: Daptomycin use, FUO, immunosuppression History of Present Illness 26-year-old male with history of renal transplant more than 10 years ago, with stable clinical status since that time on immunosuppressive therapy, who was in usual state of otherwise good health until 1-2 days prior to admission when he noted the acute onset of fever as high as 104, chills, generalized myalgias and arthralgias. No significant cough, shortness of breath, sore throat urinary complaints, or diarrhea. No rash. . Was admitted and started empirically on daptomycin and Zosyn. Has improved clinically with resolution of fever and diffuse arthralgias and myalgias. Cultures are negative to date. CT scan with hydronephrosis but this is apparently chronic in nature. No evidence of pyelonephritis or urinary tract infection. Patient without significant tick exposure, no travel or other exposure history. Does work at [employer]. Past Medical/Surgical History Medical Problems: (1) Fever Status: Acute (2) Immunocompromised Status: Acute (3) UTI (urinary tract infection) Status: Acute Medical Problems: (1) Febrile illness, acute Surgical Problems: (1) Kidney transplant recipient Family History No pertinent family history Social History Smoking Status: Never Smoker Smokeless Tobacco Use: No Alcohol Use: none Drug Use: none Marital Status: in relationship Housing Status: lives with significant other Occupation Status: employed Allergies Coded Allergies: No Known Allergies (Unverified , 04/12/17) Current Inpatient Medications Current Inpatient Medications Medications (Trade) Dose Ordered Sig/Obie Route Start Time Stop Time Status Last Admin Dose Admin Acetaminophen (Tylenol Tab) 650 mg Q4H PRN PO 04/12/17 19:45 05/12/17 19:44 04/13/17 21:52 650 MG Zolpidem Tartrate (Ambien Tab) 5 mg HSZ PRN PO 04/12/17 19:45 05/12/17 19:44 04/13/17 21:52 5 MG Daptomycin 425 mg/ Sodium Chloride 58.5 ml @ 100 mls/hr DAILY@2200 IV 04/12/17 22:00 04/19/17 21:59 04/13/17 21:52 100 MLS/HR Piperacillin Sod/ Tazobactam Sod 3.375 gm/Dextrose 115 ml @ 28.75 mls/ hr Q8 IV 04/12/17 22:00 04/19/17 21:59 04/14/17 05:29 28.75 MLS/HR Piperacillin Sod/ Tazobactam Sod (Consult) 1 ea UD PRN N/A 04/12/17 23:00 05/12/17 22:59 Tacrolimus (Prograf Cap) 3 mg QAM PO 04/14/17 08:00 05/14/17 07:59 04/14/17 08:23 3 MG Polyethylene (Miralax Powder Packet) 17 gm DAILY PO 04/14/17 08:00 05/14/17 07:59 04/14/17 08:59 17 GM Review of Systems All systems were reviewed and are negative except as per HPI Physical Exam Date Time Temp Pulse Resp B/P (MAP) Pulse Ox O2 Delivery O2 Flow Rate FiO2 04/14/17 08:08 36.6 53 16 130/77 (94) 99 Room Air 04/14/17 01:37 Room Air 04/14/17 00:14 36.9 52 18 105/64 (78) 98 Room Air 04/13/17 20:30 37.2 04/13/17 20:18 Room Air 04/13/17 19:07 37.0 04/13/17 16:11 37.2 75 16 122/81 (95) 99 Room Air 04/13/17 16:00 Room Air General Appearance: WD/WN, no apparent distress Head: normocephalic, atraumatic Eyes: normal inspection, EOMI, sclerae normal ENT: normal ENT inspection, hearing grossly normal, pharynx normal Neck: supple, no adenopathy, thyroid normal, trachea midline Respiratory/Chest: chest non-tender, lungs clear, normal breath sounds, no respiratory distress Cardiovascular: regular rate, rhythm, no gallop, no murmur Abdomen/GI: normal bowel sounds, non tender, soft, no organomegaly Back: normal inspection, no CVA tenderness Extremities/Musculoskelatal: no calf tenderness, normal capillary refill, non- tender Neurologic/Psych: alert, normal mood/affect, oriented x 3 Skin: normal color, warm/dry, no rash Lymphatic: no adenopathy Laboratory Results RUN DATE: 04/14/17 [facility] LAB PAGE 1 RUN TIME: 740 Specimen Inquiry PATIENT: JAYLON VERA LOC: 4W U # : [id number] AGE/SX: 26/M ROOM: [facility] REG : 04/12/[address]: Logan Martin M.D : 1990 BED: 1 DIS : STATUS: ADM IN TLOC: SPEC #: [id number] POLO: 04/12/17 STATUS: RES REQ #: [id number] RECD: 04/12/[address]: Danny Galvin M.D. SOURCE: BLOOD ENTR: 04/12/[address]: Maria Victoria Horne, Michelle [facility]: ORDERED: BLOOD CULTURE Procedure Result Verified Site BLD CULT Preliminary 04/14/17-739 NO GROWTH TO DATE. Last 24 Hours Test 04/14/17 05:21 White Blood Count 9.11 K/uL Red Blood Count 4.40 M/uL Hemoglobin 13.1 g/dL Hematocrit 37.8 % Mean Corpuscular Volume 85.9 fL Mean Corpuscular Hemoglobin 29.8 pg Mean Corpuscular Hemoglobin Concent 34.7 g/dl Platelet Count 216 K/uL Mean Platelet Volume 10.3 fL Neutrophils (%) (Auto) 60.8 % Lymphocytes (%) (Auto) 16.6 % Monocytes (%) (Auto) 20.0 % Eosinophils (%) (Auto) 2.1 % Basophils (%) (Auto) 0.3 % Neutrophils # (Auto) 5.54 K/uL Lymphocytes # (Auto) 1.51 K/uL Monocytes # (Auto) 1.82 K/uL Eosinophils # (Auto) 0.19 K/uL Basophils # (Auto) 0.03 K/uL RDW Standard Deviation 40.1 fL RDW Coefficient of Variation 12.7 % Immature Granulocyte % (Auto) 0.2 % Immature Granulocyte # (Auto) 0.02 K/uL Sodium Level 138 mmol/L Potassium Level 4.9 mmol/L Chloride Level 104 mmol/L Carbon Dioxide Level 29 mmol/L Anion Gap 5.0 mmol/L Blood Urea Nitrogen 16 mg/dl Creatinine 1.10 mg/dl Est Creatinine Clear Calc Drug Dose 104.3 ml/min Estimated GFR () 108.3 Estimated GFR (Non- 93.5 BUN/Creatinine Ratio 14.3 Random Glucose 99 mg/dl Calcium Level 9.2 mg/dl [~ rep ct add3]] CHEST ONE VIEW PORTABLE CLINICAL HISTORY: Sepsis fever COMPARISON STUDY: No previous studies for comparison. FINDINGS: The bones soft tissues and hemidiaphragms are normal. The cardiomediastinal silhouette is normal. The lungs are clear. The pulmonary vasculature is normal. IMPRESSION: Negative chest. Assessment & Plan Acute febrile illness in stable 26 yo renal transplant patient without obvious localizing findings, negative cultures thus far, and clinical response to antibiotics. Although Lyme disease seems unlikely given potential exposure history, clinical response to Zosyn supports this possibility. No evidence of acute bacterial process. I have ordered studies for CMV, and EBV, and anaplasma , and could consider transition to oral doxycycline if blood cultures remain negative. Will discuss with all involved. Will follow.
--- NOTE | 2017-04-14 10:29 | Nephrology Progress Note ---
Nephrology Progress Note Date of Service Apr 14, 2017. Chief Complaint Kidney transplant Subjective Mr. Wu was seen & examined in his hospital room this morning. His mother was present at the time of my evaluation. Mr. Wu reports that his fever has broken. He was afebrile overnight. He currently denies tenderness overlying his tranplanted kidney, dysuria, gross hematuria, dyspnea, cough or diarrhea. Review of Systems Constitutional: No fever Cardiovascular: No chest pain Respiratory: No productive cough, No dyspnea at rest Abdomen: No pain, No vomiting Genitourinary - Male: No dysuria, No gross hematuria Extremities: No leg edema Integumentary: No rash A complete review of systems was performed. Pertinent positives are noted above. All other systems are negative. Vital Signs Last 8 Hrs Date Time Temp Pulse Resp B/P (MAP) Pulse Ox O2 Delivery O2 Flow Rate FiO2 04/14/17 08:08 36.6 53 16 130/77 (94) 99 Room Air Last Recorded Weight Weight (Kilograms): 68.900 Physical Exam General Appearance: no apparent distress Head: normocephalic, atraumatic Eyes: PERRL, EOMI Neck: no adenopathy Respiratory/Chest: lungs clear, no respiratory distress Cardiovascular: regular rate, rhythm, no murmur Back: no CVA tenderness Abdomen/GI: normal bowel sounds, non tender, soft, + pertinent finding (RLQ renal allograft is nontender to palpation. 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 Denies tobacco or alcohol Laboratory Results Past 24 Hours 04/14/17 05:21 Red Blood Count 4.40, Mean Corpuscular Volume 85.9, Mean Corpuscular Hemoglobin 29.8, Mean Corpuscular Hemoglobin Concent 34.7, Mean Platelet Volume 10.3, Neutrophils (%) (Auto) 60.8, Lymphocytes (%) (Auto) 16.6, Monocytes (%) (Auto) 20.0, Eosinophils (%) (Auto) 2.1, Basophils (%) (Auto) 0.3, Neutrophils # (Auto ) 5.54, Lymphocytes # (Auto) 1.51, Monocytes # (Auto) 1.82, Eosinophils # (Auto ) 0.19, Basophils # (Auto) 0.03 04/14/17 05:21 Test 04/14/17 05:21 04/14/17 10:16 White Blood Count 9.11 K/uL (4.8-10.8) Red Blood Count 4.40 M/uL (4.7-6.1) Hemoglobin 13.1 g/dL (14.0-18.0) Hematocrit 37.8 % (42-52) Mean Corpuscular Volume 85.9 fL (80-100) Mean Corpuscular Hemoglobin 29.8 pg (25-34) Mean Corpuscular Hemoglobin Concent 34.7 g/dl (32-36) Platelet Count 216 K/uL (130-400) Mean Platelet Volume 10.3 fL (7.4-10.4) Neutrophils (%) (Auto) 60.8 % Lymphocytes (%) (Auto) 16.6 % Monocytes (%) (Auto) 20.0 % Eosinophils (%) (Auto) 2.1 % Basophils (%) (Auto) 0.3 % Neutrophils # (Auto) 5.54 K/uL (1.4-6.5) Lymphocytes # (Auto) 1.51 K/uL (1.2-3.4) Monocytes # (Auto) 1.82 K/uL (0.11-0.59) Eosinophils # (Auto) 0.19 K/uL (0-0.5) Basophils # (Auto) 0.03 K/uL (0-0.2) RDW Standard Deviation 40.1 fL (36.4-46.3) RDW Coefficient of Variation 12.7 % (11.5-14.5) Immature Granulocyte % (Auto) 0.2 % Immature Granulocyte # (Auto) 0.02 K/uL (0.00-0.02) Anion Gap 5.0 mmol/L (3-11) Est Creatinine Clear Calc Drug Dose 104.3 ml/min Estimated GFR () 108.3 Estimated GFR (Non- 93.5 BUN/Creatinine Ratio 14.3 (10-20) Calcium Level 9.2 mg/dl (8.5-10.1) Allergies Coded Allergies: No Known Allergies (Unverified , 04/12/17) Medications Current Inpatient Medications Medications (Trade) Dose Ordered Sig/Obie Route Start Time Stop Time Status Last Admin Dose Admin Acetaminophen (Tylenol Tab) 650 mg Q4H PRN PO 04/12/17 19:45 05/12/17 19:44 04/13/17 21:52 650 MG Zolpidem Tartrate (Ambien Tab) 5 mg HSZ PRN PO 04/12/17 19:45 05/12/17 19:44 04/13/17 21:52 5 MG Daptomycin 425 mg/ Sodium Chloride 58.5 ml @ 100 mls/hr DAILY@2200 IV 04/12/17 22:00 04/19/17 21:59 04/13/17 21:52 100 MLS/HR Piperacillin Sod/ Tazobactam Sod 3.375 gm/Dextrose 115 ml @ 28.75 mls/ hr Q8 IV 04/12/17 22:00 04/19/17 21:59 04/14/17 05:29 28.75 MLS/HR Piperacillin Sod/ Tazobactam Sod (Consult) 1 ea UD PRN N/A 04/12/17 23:00 05/12/17 22:59 Tacrolimus (Prograf Cap) 3 mg QAM PO 04/14/17 08:00 05/14/17 07:59 04/14/17 08:23 3 MG Polyethylene (Miralax Powder Packet) 17 gm DAILY PO 04/14/17 08:00 05/14/17 07:59 04/14/17 08:59 17 GM Impression (1) Fever (2) Immunocompromised (3) Kidney transplant recipient Recommendations KIDNEY TRANSPLANT: -- Volume status, electrolyte balance and kidney function remain stable at this time -- Continue Tacrolimus at current dose. Await blood level -- Monitor serial PRP -- Post void US of [place] R kidney shows persistent hydronephrosis. I have spoken w/ patient's transplant yeast culture operator Dr. Vonda Dasilva at [facility] ([phone]). Patient has had stable dilation of R ureter dating back to at least 2010 by US studies at [facility] -- Last two office visit notes from [facility] Department of Kidney Transplantation have been requested. Will review when available ID: -- Blood cultures x 2 were negative -- Urine culture is pending but sample was obtained while on antibiotic therapy -- Patient care discussed w/ Dr. Hood this am. EBV, CMV and Lyme titers have been ordered
[2017-04-14 15:11] LABS: URINE APPEARANCE CLEAR (CLEAR); URINE BILIRUBIN NEG (NEG); URINE COLOR YELLOW; URINE EPITHELIAL CELL AUTO >30 /lpf (0-5); URINE NITRITE NEG (NEG); URINE SPECIFIC GRAVITY 1.009 (1.000-1.030); UROBILINOGEN NEG (NEG)
[2017-04-14 15:14] LABS: MANUAL MICROSCOPIC REQUIRED? NO; REVIEW REQ? YES
[2017-04-14 16:07] VITALS: BP 125/72; PULSE 56; TEMP 36.7; O2SAT 99
[2017-04-14] MEDS: DAPTOmycin IV 425 MG in SODIUM CHLORIDE 0.9% 50ML 50 ML IV SCH (21:47)
[2017-04-14] MEDS: ZOLPIDEM TARTRATE 5 MG TAB PO PRN (22:50)
--- NOTE | 2017-04-14 23:06 | Hospitalist Progress Note ---
Hospitalist Progress Note Date of Service Apr 14, 2017. Subjective Pt evaluation today including: conversation w/ patient Pain: none PO Intake: tolerating Voiding: no voiding problems Patient feeling much better today. Remains afebrile. No more joint pains, no other symptoms at all. All Other Systems: Reviewed and Negative Objective Vital Signs Date Time Temp Pulse Resp B/P (MAP) Pulse Ox O2 Delivery O2 Flow Rate FiO2 04/14/17 16:07 36.7 56 18 125/72 (89) 99 Room Air 04/14/17 16:00 Room Air 04/14/17 08:08 36.6 53 16 130/77 (94) 99 Room Air 04/14/17 08:00 Room Air 04/14/17 01:37 Room Air 04/14/17 00:14 36.9 52 18 105/64 (78) 98 Room Air Physical Exam General Appearance: WD/WN, no apparent distress Eyes: normal inspection, sclerae normal ENT: hearing grossly normal, pharynx normal Neck: supple, no adenopathy, thyroid normal, no JVD, trachea midline Respiratory/Chest: lungs clear, normal breath sounds, no respiratory distress, no accessory muscle use Cardiovascular: regular rate, rhythm, no edema, no gallop, no murmur Abdomen: normal bowel sounds, non tender, soft, no organomegaly, no pulsatile mass Extremities: normal range of motion, non-tender, normal inspection, no pedal edema, no calf tenderness, normal capillary refill Neurologic/Psychiatric: alert, normal mood/affect, oriented x 3 Skin: normal color, warm/dry, no rash Lymphatic: no adenopathy Laboratory Results Last 24 Hours Test 04/14/17 05:21 04/14/17 10:36 04/14/17 14:28 White Blood Count 9.11 K/uL Red Blood Count 4.40 M/uL Hemoglobin 13.1 g/dL Hematocrit 37.8 % Mean Corpuscular Volume 85.9 fL Mean Corpuscular Hemoglobin 29.8 pg Mean Corpuscular Hemoglobin Concent 34.7 g/dl Platelet Count 216 K/uL Mean Platelet Volume 10.3 fL Neutrophils (%) (Auto) 60.8 % Lymphocytes (%) (Auto) 16.6 % Monocytes (%) (Auto) 20.0 % Eosinophils (%) (Auto) 2.1 % Basophils (%) (Auto) 0.3 % Neutrophils # (Auto) 5.54 K/uL Lymphocytes # (Auto) 1.51 K/uL Monocytes # (Auto) 1.82 K/uL Eosinophils # (Auto) 0.19 K/uL Basophils # (Auto) 0.03 K/uL RDW Standard Deviation 40.1 fL RDW Coefficient of Variation 12.7 % Immature Granulocyte % (Auto) 0.2 % Immature Granulocyte # (Auto) 0.02 K/uL Sodium Level 138 mmol/L Potassium Level 4.9 mmol/L Chloride Level 104 mmol/L Carbon Dioxide Level 29 mmol/L Anion Gap 5.0 mmol/L Blood Urea Nitrogen 16 mg/dl Creatinine 1.10 mg/dl Est Creatinine Clear Calc Drug Dose 104.3 ml/min Estimated GFR () 108.3 Estimated GFR (Non- 93.5 BUN/Creatinine Ratio 14.3 Random Glucose 99 mg/dl Calcium Level 9.2 mg/dl Urine Color YELLOW Urine Appearance CLEAR Urine pH 7.0 Urine Specific [place] 1.009 Urine Protein NEG Urine Glucose (UA) NEG Urine Ketones NEG Urine Occult Blood NEG Urine Nitrite NEG Urine Bilirubin NEG Urine Urobilinogen NEG Urine Leukocyte Esterase MODERATE Urine WBC (Auto) 1-5 /hpf Urine RBC (Auto) 0-4 /hpf Urine Hyaline Casts (Auto) 0 /lpf Urine Epithelial Cells (Auto) >30 /lpf Urine Bacteria (Auto) NEG Urine Renal Epithelial Cells /lpf Assessment and Plan 26 y/o male with a history of congenital urinary obstruction and ESRD s/p left nephrectomy and right renal transplant on Prograf who presents to the ED with fevers, generalized aches, weakness and fatigue. Pt arrived tachycardic, febrile, and with leukocytosis. Sepsis of unknown etiology in the setting of immunocompromise, s/p renal transplant--improving on broad-spectrum antibiotics, could be viral syndrome. He had some joint pains, nausea, and headache along with his fevers which have all resolved. Ultrasound right transplant kidney shows mild fullness of renal collecting system w/bladder distention that resolves post voiding. Normal renal arterial blood flow characteristics to the transplant kidney. No evidence for a significant stenotic process. Renal ultrasound of [place] kidney shows moderate right-sided hydronephrosis with minimal improvement following voiding Nephrology consulted, appreciate recs -Urinalysis was abnormal, however Urine culture showed no growth but was collected after antibiotics were given 2 need to follow blood cultures no growth to date -Lyme negative. CMV and EBV, as well as anaplasmosis titers pending -Continue Zosyn and daptomycin IV -Infectious disease consulted, appreciate recs -Consider treatment course with doxycycline for 2 weeks if cultures remain negative tomorrow and he can be discharged with follow-up on viral studies after discharge History of renal transplant, on immunosuppressive therapy-stable, renal function normal, renal ultrasounds as above -Continue tacrolimus 3 mg PO qam -He reports he takes the metoprolol only as needed for tremor and public speaking DVT prophylaxis-SCDs, ambulation Disposition-expect to home tomorrow
[2017-04-14 23:37] VITALS: BP 132/82; PULSE 52; TEMP 36.8; O2SAT 99
[2017-04-15] MEDS: PIPERACILL/TAZOBAC IV 3.375 GM in DEXTROSE 5% 100ML 100 ML IV SCH (06:20)
[2017-04-15] MEDS ORDERED: ONDANSETRON INJ 2 MG/ML 2 ML VIAL IV PRN (06:45)
[2017-04-15 07:24] LABS: BASO % 0.5 %; BASO ABS # 0.03 K/uL (0-0.2); COMPLETE YES; EOS % 4.1 %; HEMATOCRIT 39.9 % (42-52); IG% 0.2 %; LYMPH % 30.1 %; LYMPH ABS # 1.69 K/uL (1.2-3.4); MEAN CELL VOLUME 86.6 fL (80-100); MEAN CORPUSCULAR HEMOGLOBIN 28.2 pg (25-34); MEAN CORPUSCULAR HGB CONC 32.6 g/dl (32-36); MEAN PLATELET VOLUME 10.2 fL (7.4-10.4); MONO % 16.4 %; NEUT % 48.7 %; PLATELET COUNT 280 K/uL (130-400); RED BLOOD COUNT 4.61 M/uL (4.7-6.1); WHITE BLOOD COUNT 5.62 K/uL (4.8-10.8)
[2017-04-15] MEDS: TACROLIMUS 1 MG CAP PO SCH (07:39)
[2017-04-15] MEDS: POLYETHYLENE (MIRALAX) 17 GM PACK PO SCH (07:39)
[2017-04-15 07:44] VITALS: BP 110/61; PULSE 58; TEMP 36.9; O2SAT 99
[2017-04-15 07:58] LABS: BUN/CREATININE RATIO 18.1 (10-20); CALCIUM 9.3 mg/dl (8.5-10.1); CREATININE 1.1 mg/dl (0.60-1.40); POTASSIUM 4.1 mmol/L (3.5-5.1)
[2017-04-15 09:35] LABS: FK506 TACROLIMUS HIGHLY SENS 2.8 MCG/L (5-20)
[2017-04-15] MEDS ORDERED: DXY100 PO (09:54)
[2017-04-15] MEDS ORDERED: TACR1CAP PO (09:54)
[2017-04-15] MEDS ORDERED: ACET-1311 PO (09:54)
[2017-04-15] MEDS ORDERED: METO25TA3 PO (09:54)
--- NOTE | 2017-04-15 10:02 | Discharge Instructions ---
Discharge Instructions Date of Service Apr 15, 2017. Admission Reason for Admission: Febrile Illness Acute, Kidney Transplant Recipient Discharge Discharge Diagnosis / Problem: Febrile illness in setting of immune suppression Discharge Goals Goal(s): Improve disease control, Diagnostic testing, Therapeutic intervention Activity Recommendations Activity Limitations: resume your previous activity Lifting Limitations: gradually increase as tolerated Exercise/Sports Limitations: gradually increase as tolerated Shower/Bathe: no limitations Driving or Machine Use: no limitations . Instructions / Follow-Up Instructions / Follow-Up You were admitted with a febrile illness. No definite source of infection was found, but some of the lab work was still pending at the time of discharge. Your initial urine sample did look like it could possibly have an infection, but the urine culture did not get sent on that particular urine sample. A new sample was collected and sent for culture after you had received some antibiotics and it was negative for infection (but could be falsely negative). Please take a 14 day course of doxycycline after discharge. This medication will cover you for tick-borne illness as well as other bacterial infections including urinary tract infection. It is important to drink a full glass of water with doxycycline and to not lie down for at least 30 min after taking it. You should follow up with Dr. Jerardo Hood, Infectious Disease in 1-2 weeks. Please also establish care with Dr. Sachin Dias, Nephrology for care of your renal transplant locally while you are at [employer]. Current Hospital Diet Patient's current hospital diet: Regular Diet Discharge Diet Recommended Diet: Regular Diet Procedures Procedures Performed: Chest xray Renal Ultrasound Pending Studies Studies pending at discharge: yes List of pending studies: CMV, EBV, Anaplasmosis Laboratory Results Last 24 Hours Test 04/14/17 10:36 04/14/17 14:28 04/15/17 06:52 Urine Color YELLOW Urine Appearance CLEAR Urine pH 7.0 Urine Specific [place] 1.009 Urine Protein NEG Urine Glucose (UA) NEG Urine Ketones NEG Urine Occult Blood NEG Urine Nitrite NEG Urine Bilirubin NEG Urine Urobilinogen NEG Urine Leukocyte Esterase MODERATE Urine WBC (Auto) 1-5 /hpf Urine RBC (Auto) 0-4 /hpf Urine Hyaline Casts (Auto) 0 /lpf Urine Epithelial Cells (Auto) >30 /lpf Urine Bacteria (Auto) NEG Urine Renal Epithelial Cells /lpf White Blood Count 5.62 K/uL Red Blood Count 4.61 M/uL Hemoglobin 13.0 g/dL Hematocrit 39.9 % Mean Corpuscular Volume 86.6 fL Mean Corpuscular Hemoglobin 28.2 pg Mean Corpuscular Hemoglobin Concent 32.6 g/dl Platelet Count 280 K/uL Mean Platelet Volume 10.2 fL Neutrophils (%) (Auto) 48.7 % Lymphocytes (%) (Auto) 30.1 % Monocytes (%) (Auto) 16.4 % Eosinophils (%) (Auto) 4.1 % Basophils (%) (Auto) 0.5 % Neutrophils # (Auto) 2.74 K/uL Lymphocytes # (Auto) 1.69 K/uL Monocytes # (Auto) 0.92 K/uL Eosinophils # (Auto) 0.23 K/uL Basophils # (Auto) 0.03 K/uL RDW Standard Deviation 40.8 fL RDW Coefficient of Variation 12.8 % Immature Granulocyte % (Auto) 0.2 % Immature Granulocyte # (Auto) 0.01 K/uL Sodium Level 139 mmol/L Potassium Level 4.1 mmol/L Chloride Level 105 mmol/L Carbon Dioxide Level 28 mmol/L Anion Gap 6.0 mmol/L Blood Urea Nitrogen 20 mg/dl Creatinine 1.10 mg/dl Est Creatinine Clear Calc Drug Dose 98.1 ml/min Estimated GFR () 108.3 Estimated GFR (Non- 93.5 BUN/Creatinine Ratio 18.1 Random Glucose 109 mg/dl Calcium Level 9.3 mg/dl Tacrolimus level 2.8 Medical Emergencies . Who to Call and When: Medical Emergencies: If at any time you feel your situation is an emergency, please call 911 immediately. . Non-Emergent Contact Non-Emergency issues call your: Primary Care Provider, Breaker Hand Call Non-Emergent contact if: you have a fever, your pain is not controlled, your pain is worsening, your pain is unusual for you, your pain is concerning you, you have any medication questions . . "Provider Documentation" section prepared by Brielle Georges. . VTE Core Measure Inpt VTE Proph given/why not?: SCD's
--- NOTE | 2017-04-15 10:10 | Discharge Summary ---
Discharge Summary Date of Service Apr 15, 2017. Discharge Summary Admission Date: Apr 12, 2017 at 19:44 Discharge Date: Apr 15, 2017 Discharge Disposition: Home Principal Diagnosis: Febrile illness in immunocompromised state Problems/Secondary Diagnoses: Renal transplant recipient Tremor Immunizations: Have You Had Influenza Vaccine: Unknown History of Tetanus Vaccine?: Unknown History of Pneumococcal: Unknown History of Hepatitis B Vaccine: Unknown Procedures: Renal US Chest xray Consultations: Nephrology Infectious Disease Medication Reconciliation New Medications: Doxycycline Hyclate (Doxycycline Hyclate) 100 Mg Cap 100 MG PO BID for 14 Days, #28 CAP can be cap or tablet Changed Medications: Acetaminophen (Tylenol) 325 Mg Tab 325 MG PO Q4 PRN for Pain or Fever for 30 Days, TAB (Medication details modified ) Metoprolol Succ (Toprol Xl) (Toprol-Xl) 25 Mg Tabcr 12.5 MG PO DAILY PRN for tremor or public speaking for 30 Days (Changed from: Removed Quantity) Tacrolimus (Prograf) 1 Mg Cap 3 CAP PO DAILY for 30 Days, 0 Refills (Changed from: BID; Removed Quantity; Refills: 11) Referrals At Discharge Follow up Referrals: Infectious Disease - Within 1-2 Weeks with Jerardo Hood MD [employer] Referral - Within 1-2 Weeks with Martinez Dias M.D. Discharge Exam Feeling tired but otherwise no complaints. Anxious to sleep in his own bed and be discharged. Afebrile for 48 hours Physical Exam General Appearance: WD/WN, no apparent distress Eyes: normal inspection, sclerae normal ENT: hearing grossly normal, pharynx normal Neck: supple, no adenopathy, thyroid normal, no JVD, trachea midline Respiratory/Chest: lungs clear, normal breath sounds, no respiratory distress, no accessory muscle use Cardiovascular: regular rate, rhythm, no edema, no gallop, no murmur Abdomen: normal bowel sounds, non tender, soft, no organomegaly, no pulsatile mass Extremities: normal range of motion, non-tender, normal inspection, no pedal edema, no calf tenderness, normal capillary refill Neurologic/Psychiatric: alert, normal mood/affect, oriented x 3 Skin: normal color, warm/dry, no rash Lymphatic: no adenopathy Review of Systems: Constitutional: + fatigue, No fever, No chills Eyes: No problem reported ENT: No problem reported Respiratory: No problem reported Cardiovascular: No problem reported Abdomen: No problem reported Musculoskeletal: No problem reported Genitourinary - Male: No problem reported Neurologic: No problem reported Psychiatric: No problem reported Endocrine: No problem reported Hematologic / Lymphatic: No problem reported Integumentary: No problem reported Hospital Course 26 y/o male with a history of congenital urinary obstruction and ESRD s/p left nephrectomy and right renal transplant on Prograf who presents to the ED with fevers, generalized aches, weakness and fatigue. Pt arrived tachycardic, febrile, and with leukocytosis. Sepsis of unknown etiology in the setting of immunocompromise, s/p renal transplant--improving on broad-spectrum antibiotics, could be viral syndrome. He had some joint pains, nausea, and headache along with his fevers which have all resolved. WBC count down to normal. No further fevers since the AM of 04/13. Ultrasound right transplant kidney shows mild fullness of renal collecting system w/bladder distention that resolves post voiding. Normal renal arterial blood flow characteristics to the transplant kidney. No evidence for a significant stenotic process. Renal ultrasound of makah kidney shows moderate right-sided hydronephrosis with minimal improvement following voiding Nephrology consulted, appreciate recs--> f/u to establish care locally in the office in 2 weeks -Urinalysis was abnormal, however Urine culture showed no growth but was collected after antibiotics were given - need to follow blood cultures no growth to date -Lyme negative. CMV and EBV, as well as anaplasmosis titers pending -Received Zosyn and daptomycin IV for 3 days--> transition to doxycycline for 14 day course on discharge, f/u with ID in 1-2 weeks History of renal transplant, on immunosuppressive therapy-stable, renal function normal, renal ultrasounds as above -Continue tacrolimus 3 mg PO qam -tacrolimus level here 2.8 which is fine for him as per his mom (usually runs low) -f/u with Transplant specialist routinely -He reports he takes the metoprolol only as needed for tremor and public speaking DVT prophylaxis-SCDs, ambulation Disposition- to home Total Time Spent: Greater than 30 minutes This includes examination of the patient, discharge planning, medication reconciliation, and communication with other providers. Discharge Instructions Please refer to the electronic Patient Visit Report (Discharge Instructions) for additional information. Follow-Up Nephrology 2 weeks ID 1-2 weeks Additional Copies To Jerardo Hood MD; Martinez Dias M.D.
[2017-04-15 10:16] VITALS: BP 110/61; PULSE 58; TEMP 36.9; O2SAT 99
--- NOTE | 2017-04-15 10:22 | Nephrology Progress Note ---
Nephrology Progress Note Date of Service Apr 15, 2017. Chief Complaint Kidney transplant Subjective Mr. Wu was seen & examined in his hospital room this morning. His mother was present at bedside. He reports that he was afebrile overnight. Mr. Wu reports improved strength Review of Systems Constitutional: No fever Cardiovascular: No chest pain Respiratory: No dyspnea at rest Abdomen: No pain, No nausea, No vomiting Genitourinary - Male: No dysuria, No gross hematuria Extremities: No leg edema A complete review of systems was performed. Pertinent positives are noted above. All other systems are negative. Vital Signs Last 8 Hrs Date Time Temp Pulse Resp B/P (MAP) Pulse Ox O2 Delivery O2 Flow Rate FiO2 04/15/17 07:44 36.9 58 16 110/61 (77) 99 Room Air Last Recorded Weight Weight (Kilograms): 67.000 Physical Exam General Appearance: no apparent distress Head: normocephalic, atraumatic Eyes: PERRL, EOMI Neck: no adenopathy Respiratory/Chest: lungs clear, no respiratory distress Cardiovascular: regular rate, rhythm, no murmur Abdomen/GI: normal bowel sounds, non tender, soft Extremities/Musculoskelatal: no calf tenderness, no pedal edema Neurologic/Psych: alert, oriented x 3 Family History No pertinent family history Negative for CKD / ESRD Social History Smokeless Tobacco Use: No Alcohol Use: none Drug Use: none Marital Status: in relationship Occupation: employed 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 Denies tobacco or alcohol Laboratory Results Past 24 Hours 04/15/17 06:52 Red Blood Count 4.61, Mean Corpuscular Volume 86.6, Mean Corpuscular Hemoglobin 28.2, Mean Corpuscular Hemoglobin Concent 32.6, Mean Platelet Volume 10.2, Neutrophils (%) (Auto) 48.7, Lymphocytes (%) (Auto) 30.1, Monocytes (%) (Auto) 16.4, Eosinophils (%) (Auto) 4.1, Basophils (%) (Auto) 0.5, Neutrophils # (Auto ) 2.74, Lymphocytes # (Auto) 1.69, Monocytes # (Auto) 0.92, Eosinophils # (Auto ) 0.23, Basophils # (Auto) 0.03 04/15/17 06:52 Test 04/14/17 10:36 04/14/17 14:28 04/15/17 06:52 Urine Color YELLOW Urine Appearance CLEAR (CLEAR) Urine pH 7.0 (4.5-7.5) Urine Specific Elmo 1.009 (1.000-1.030) Urine Protein NEG (NEG) Urine Glucose (UA) NEG (NEG) Urine Ketones NEG (NEG) Urine Occult Blood NEG (NEG) Urine Nitrite NEG (NEG) Urine Bilirubin NEG (NEG) Urine Urobilinogen NEG (NEG) Urine Leukocyte Esterase MODERATE (NEG) Urine WBC (Auto) 1-5 /hpf (0-5) Urine RBC (Auto) 0-4 /hpf (0-4) Urine Hyaline Casts (Auto) 0 /lpf (0-5) Urine Epithelial Cells (Auto) >30 /lpf (0-5) Urine Bacteria (Auto) NEG (NEG) Urine Renal Epithelial Cells /lpf (0-5) White Blood Count 5.62 K/uL (4.8-10.8) Red Blood Count 4.61 M/uL (4.7-6.1) Hemoglobin 13.0 g/dL (14.0-18.0) Hematocrit 39.9 % (42-52) Mean Corpuscular Volume 86.6 fL (80-100) Mean Corpuscular Hemoglobin 28.2 pg (25-34) Mean Corpuscular Hemoglobin Concent 32.6 g/dl (32-36) Platelet Count 280 K/uL (130-400) Mean Platelet Volume 10.2 fL (7.4-10.4) Neutrophils (%) (Auto) 48.7 % Lymphocytes (%) (Auto) 30.1 % Monocytes (%) (Auto) 16.4 % Eosinophils (%) (Auto) 4.1 % Basophils (%) (Auto) 0.5 % Neutrophils # (Auto) 2.74 K/uL (1.4-6.5) Lymphocytes # (Auto) 1.69 K/uL (1.2-3.4) Monocytes # (Auto) 0.92 K/uL (0.11-0.59) Eosinophils # (Auto) 0.23 K/uL (0-0.5) Basophils # (Auto) 0.03 K/uL (0-0.2) RDW Standard Deviation 40.8 fL (36.4-46.3) RDW Coefficient of Variation 12.8 % (11.5-14.5) Immature Granulocyte % (Auto) 0.2 % Immature Granulocyte # (Auto) 0.01 K/uL (0.00-0.02) Anion Gap 6.0 mmol/L (3-11) Est Creatinine Clear Calc Drug Dose 98.1 ml/min Estimated GFR () 108.3 Estimated GFR (Non- 93.5 BUN/Creatinine Ratio 18.1 (10-20) Calcium Level 9.3 mg/dl (8.5-10.1) Allergies Coded Allergies: No Known Allergies (Unverified , 04/12/17) Medications Current Inpatient Medications Medications (Trade) Dose Ordered Sig/Obie Route Start Time Stop Time Status Last Admin Dose Admin Acetaminophen (Tylenol Tab) 650 mg Q4H PRN PO 04/12/17 19:45 05/12/17 19:44 04/13/17 21:52 650 MG Zolpidem Tartrate (Ambien Tab) 5 mg HSZ PRN PO 04/12/17 19:45 05/12/17 19:44 04/14/17 22:50 5 MG Daptomycin 425 mg/ Sodium Chloride 58.5 ml @ 100 mls/hr DAILY@2200 IV 04/12/17 22:00 04/19/17 21:59 04/14/17 21:47 100 MLS/HR Piperacillin Sod/ Tazobactam Sod 3.375 gm/Dextrose 115 ml @ 28.75 mls/ hr Q8 IV 04/12/17 22:00 04/19/17 21:59 04/15/17 06:20 28.75 MLS/HR Piperacillin Sod/ Tazobactam Sod (Consult) 1 ea UD PRN N/A 04/12/17 23:00 05/12/17 22:59 Tacrolimus (Prograf Cap) 3 mg QAM PO 04/14/17 08:00 05/14/17 07:59 04/15/17 07:39 3 MG Polyethylene (Miralax Powder Packet) 17 gm DAILY PO 04/14/17 08:00 05/14/17 07:59 04/14/17 08:59 17 GM Ondansetron HCl (Zofran Inj) 4 mg Q6H PRN IV 04/15/17 06:45 05/15/17 06:44 Impression (1) Fever (2) Immunocompromised (3) Kidney transplant recipient Recommendations KIDNEY TRANSPLANT: -- Volume status, electrolyte balance and kidney function remain stable at this time -- Tacrolimus level 2.8. Continue current Tacrolimus dose -- Monitor serial PRP -- Post void US of [id number] R kidney shows persistent hydronephrosis. I have spoken w/ patient's transplant training engineer Dr. Vonda Dasilva at [facility] ([phone]). Patient has had stable dilation of R ureter dating back to at least 2010 by US studies at [facility] -- Last two office visit notes from [facility] Department of Kidney Transplantation have been requested. Will review when available ID: -- Blood cultures x 2 and urine culture were negative -- Patient care discussed w/ Dr. Hood this am. EBV, CMV and Lyme titers have been ordered OTHER: -- If discharge is anticipated please have patient follow up w/ Dr. Dias. I have placed a task in [facility] EMR to have my staff scientist call patient and schedule follow up appointment w/ labs in 2 weeks
[2017-04-16 12:43] LABS: CYTOMEGALOVIRUS IGG AB >10.00 U/ML
[2017-04-16 16:38] LABS: CMV DNA PCR QUAL NOT DETECTED; EBV DNA QUANT PCR <200 copies/mL (<200); EBV DNA QUANT SOURCE Whole Blood
== END 2017-04-15 10:38 | disposition home or self-care (01) | DRG 872 ==
LOC: C.EDB 15:33 → C.MS4W 19:44 → ENRESERV 19:53
PROVIDERS: ADMIT Hospitalist; ATTEND Family Medicine
DX: A41.9 Sepsis, unspecified organism (principal); D84.9 Immunodeficiency, unspecified; Z94.0 Kidney transplant status; Z79.899 Other long term (current) drug therapy